=== PATIENT | female | born 1935 | race Caucasian/White ===

== ENCOUNTER 2023-07-10 17:22 | Emergency (ER) | payer MEDICARE, BC ==
[~2023-07-10] VITALS: Ht 162.6 cm; Wt 65.8 kg
[2023-07-10 18:21] LABS: BASOPHILS # (AUTO) 0.1 K/uL (0.0-0.2); BASOPHILS % (AUTO) 0.8 % (0.0-2.0); EOSINOPHILS # (AUTO) 0.6 K/uL (0.0-0.7); EOSINOPHILS % (AUTO) 7.8 % (0.0-6.0); HEMATOCRIT 30 % (33-45); HEMOGLOBIN 9.8 g/dL (11.5-14.8); LYMPHOCYTES # (AUTO) 2.4 K/uL (0.8-4.8); LYMPHOCYTES % (AUTO) 31.6 % (20.0-44.0); MEAN CORPUSCULAR HEMOGLOBIN 26 PG (26.0-33.0); MEAN CORPUSCULAR HGB CONC 33 g/dl (31.0-36.0); MEAN CORPUSCULAR VOLUME 79 fL (82-100); MONOCYTES # (AUTO) 0.8 K/uL (0.1-1.30); NEUTROPHILS # (AUTO) 3.7 K/uL (1.8-8.9); NEUTROPHILS % (AUTO) 48.8 % (43.0-81.0); PLATELET COUNT (AUTO) 426 K/uL (150-450); RED BLOOD CELL COUNT(AUTO) 3.75 MIL/uL (4.0-5.2); RED CELL DISTRIBUTION WIDTH 13.3 % (11.5-15.0); WHITE BLOOD COUNT (AUTO) 7.6 K/uL (4.3-11.0)
[2023-07-10 18:28] LABS: CALCIUM, SERUM 8.6 mg/dL (8.5-10.1); CREATININE 0.7 mg/dL (0.6-1.3); POTASSIUM 3.9 mmol/L (3.5-5.1)
[2023-07-10 18:37] LABS: LACTIC ACID 0.8 mmol/L (0.4-2.0)
[2023-07-10] MEDS ORDERED: IV NS 0.9% 250 ML IV ONE (19:03)
[2023-07-10] MEDS ORDERED: CT SWABBABLE VALVE TRANS SET 1 EA INFUS.SET MC ONE (19:03)
[2023-07-10] MEDS ORDERED: IOHEXOL-300 100 ML VIAL IV ONE (19:03)
[2023-07-11 00:01] VITALS: BP 112/69; TEMP 98.1; O2SAT 98
== END 2023-07-11 00:02 ==
LOC: ER 17:27
DX: K11.3 Abscess of salivary gland (principal); I10 Essential (primary) hypertension; K21.9 Gastro-esophageal reflux disease without esophagitis; F03.90 Unspecified dementia, unspecified severity, without behavioral disturbance, psychotic disturbance, mood disturbance, and anxiety; Z88.2 Allergy status to sulfonamides
CPT/HCPCS: 99285; 70487; 85025; 80048; 87040 ×2; 83605; 36415; J7050; Q9967